=== PATIENT | male | born 1970 | race Caucasian/White ===

== ENCOUNTER 2019-05-15 05:49 | Inpatient (IN) | payer BC ==
[2019-05-15] MEDS ORDERED: Diltiazem 50 MG/10 ML SDV IVPUSH ONE (07:12)
[2019-05-15] MEDS ORDERED: Diltiazem 125 MG in Sodium Chloride 0.9% 100 ML IV SCH (07:15)
--- NOTE | 2019-05-15 07:22 | CR ---
Chest: Two views of the chest were obtained. Comparison: No prior chest imaging. Heart size and mediastinum are normal. Lungs are clear. Bony structures are unremarkable. Impression: 1. Nothing acute is seen on two-view chest x-ray. Diagnostic code #1 This report was dictated in [place] Standard Time
--- NOTE | 2019-05-15 08:06 | EDM.PDOC ---
ED HPI GENERAL MEDICAL PROBLEM - General Chief Complaint: Cardiovascular Problem Stated Complaint: IRREGULAR HEARTBEAT Time Seen by Provider: 05/15/19 06:59 Source of Information: Reports: Patient History Limitations: Reports: No Limitations - History of Present Illness INITIAL COMMENTS - FREE TEXT/NARRATIVE: The patient presents with palpitations. He noticed this late last night or early this morning. He has no chest pain or shortness of breath. He has no fever, chills, cough, congestion or runny nose. This has never happened before. His father has a history of A-fib. He said he did eat more then he usually does and had a few drinks. He has no heart issues. Onset: Gradual Duration: Hour(s): Severity: Moderate Improves with: Reports: None Worsens with: Reports: None Associated Symptoms: Denies: Chest Pain, Cough, Fever/Chills, Headaches, Nausea/ Vomiting, Shortness of Breath - Related Data Allergies Allergy/AdvReac Type Severity Reaction Status Date / Time No Known Allergies Allergy Verified 05/15/19 13:54 Home Meds: Home Meds LORazepam [Lorazepam] 0.5 mg PO Q6H PRN 05/15/19 [History] Olmesartan/Hydrochlorothiazide [Olmesartan-Hctz 40-12.5 mg Tab] 1 tab PO DAILY 05/15/19 [History] Past Medical History Cardiovascular History: Reports: Hypertension Gastrointestinal History: Reports: GERD Psychiatric History: Reports: Anxiety, Depression - Past Surgical History Musculoskeletal Surgical History: Reports: Other (See Below) Other Musculoskeletal Surgeries/Procedures:: collar bone surgery Social & Family History - Family History Neurological: Reports: CVA - Tobacco Use Smoking Status *Q: Never Smoker Second Hand Smoke Exposure: No - Caffeine Use Caffeine Use: Reports: Coffee - Recreational Drug Use Recreational Drug Use: No ED ROS GENERAL - Review of Systems Review Of Systems: See Below Constitutional: Reports: No Symptoms HEENT: Reports: No Symptoms Respiratory: Reports: No Symptoms Cardiovascular: Reports: Palpitations. Denies: Chest Pain Endocrine: Reports: No Symptoms GI/Abdominal: Reports: No Symptoms ED EXAM, GENERAL - Physical Exam Exam: See Below Exam Limited By: No Limitations General Appearance: Alert, No Apparent Distress Ears: Normal External Exam Nose: Normal Inspection Head: Atraumatic, Normocephalic Neck: Normal Inspection Respiratory/Chest: No Respiratory Distress, Lungs Clear, Normal Breath Sounds Cardiovascular: No Edema, No Murmur, Tachycardia, Irregularly Irregular GI/Abdominal: Soft, Non-Tender, No Organomegaly, No Mass Extremities: Normal Inspection Neurological: Alert, Oriented, No Motor/Sensory Deficits EKG INTERPRETATION EKG Date: 05/15/19 Time: 17:53 Rhythm: A-Fib Rate (Beats/Min): 142 [place]: Normal QRS: Normal ST-T: Normal QT: Normal Course - Vital Signs Last Recorded V/S: Last Vital Signs Temp 98.2 F 05/15/19 16:00 Pulse 97 05/15/19 12:31 Resp 13 05/15/19 16:01 BP 135/97 H 05/15/19 16:00 Pulse Ox 98 05/15/19 16:00 - Orders/Labs/Meds Orders: Active Orders 24 hr Category Date Time Status EKG 12 Lead [EKG Documentation Completion] [RC] URGENT Care 05/15/19 06:00 Active Diltiazem 125 mg Med 05/15/19 07:15 Active Sodium Chloride 0.9% [Normal Saline] 100 ml IV TITRATE Medication Orders Acetaminophen (Tylenol) 650 mg PO Q4H PRN PRN Reason: Pain (Mild 1-3)/fever Diltiazem HCl (Cardizem) 30 mg PO Q6H [facility] Last Admin: 05/15/19 16:06 Dose: 30 mg Diltiazem HCl 125 mg/ Sodium (Chloride) 125 mls @ 10 mls/hr IV TITRATE [facility]; Protocol Last Titration: 05/15/19 15:00 Dose: 0 mg/hr, 0 mls/hr Titration: 05/15/19 12:05 Dose: 5 mg/hr, 5 mls/hr Titration: 05/15/19 07:43 Dose: 10 mg/hr, 10 mls/hr Admin: 05/15/19 07:36 Dose: 5 mg/hr, 5 mls/hr Lorazepam (Ativan) 0.5 mg PO Q6H PRN PRN Reason: Anxiety Last Admin: 05/15/19 16:20 Dose: 0.5 mg Rivaroxaban ([facility]to) [facility] Labs: Laboratory Tests 05/15/19 05/15/19 05/15/19 Range/Units 05:59 05:59 05:59 WBC 6.41 (4.23-9.07) K/mm3 RBC 5.56 (4.63-6.08) M/mm3 Hgb 16.5 (13.7-17.5) gm/dl Hct 48.0 (40.1-51.0) % MCV 86.3 (79.0-92.2) fl MCH 29.7 (25.7-32.2) pg MCHC 34.4 (32.2-35.5) g/dl RDW Std Deviation 38.8 (35.1-43.9) fL Plt Count 242 (163-337) K/mm3 MPV 9.2 L (9.4-12.3) fl Neut % (Auto) 72.6 H (34.0-67.9) % Lymph % (Auto) 20.4 L (21.8-53.1) % [place] % (Auto) 6.2 (5.3-12.2) % Eos % (Auto) 0.6 L (0.8-7.0) Baso % (Auto) 0.2 (0.1-1.2) % Neut # (Auto) 4.65 (1.78-5.38) K/mm3 Lymph # (Auto) 1.31 L (1.32-3.57) K/mm3 [place] # (Auto) 0.40 (0.30-0.82) K/mm3 Eos # (Auto) 0.04 (0.04-0.54) K/mm3 Baso # (Auto) 0.01 (0.01-0.08) K/mm3 D-Dimer, Quantitative < 0.19 L (0.19-0.50) mg/L Sodium 141 (136-145) mEq/L Potassium 3.8 (3.5-5.1) mEq/L Chloride 105 (98-107) mEq/L Carbon Dioxide 29 (21-32) mEq/L Anion Gap 10.8 (5-15) BUN 16 (7-18) mg/dL Creatinine 1.2 (0.7-1.3) mg/dL Est Cr Clr Drug Dosing 82.30 mL/min Estimated GFR (MDRD) > 60 (>60) mL/min BUN/Creatinine Ratio 13.3 L (14-18) Glucose 132 H (74-106) mg/dL Calcium 10.8 H (8.5-10.1) mg/dL Total Bilirubin 0.3 (0.2-1.0) mg/dL AST 29 (15-37) U/L ALT 50 (16-63) U/L Alkaline Phosphatase 74 (46-116) U/L Troponin I < 0.017 (0.00-0.056) ng/mL Total Protein 8.6 H (6.4-8.2) g/dl Albumin 4.4 (3.4-5.0) g/dl Globulin 4.2 gm/dL Albumin/Globulin Ratio 1.1 (1-2) TSH 3rd Generation (0.358-3.74) uIU/mL 05/15/19 Range/Units 05:59 WBC (4.23-9.07) K/mm3 RBC (4.63-6.08) M/mm3 Hgb (13.7-17.5) gm/dl Hct (40.1-51.0) % MCV (79.0-92.2) fl MCH (25.7-32.2) pg MCHC (32.2-35.5) g/dl RDW Std Deviation (35.1-43.9) fL Plt Count (163-337) K/mm3 MPV (9.4-12.3) fl Neut % (Auto) (34.0-67.9) % Lymph % (Auto) (21.8-53.1) % [place] % (Auto) (5.3-12.2) % Eos % (Auto) (0.8-7.0) Baso % (Auto) (0.1-1.2) % Neut # (Auto) (1.78-5.38) K/mm3 Lymph # (Auto) (1.32-3.57) K/mm3 [place] # (Auto) (0.30-0.82) K/mm3 Eos # (Auto) (0.04-0.54) K/mm3 Baso # (Auto) (0.01-0.08) K/mm3 D-Dimer, Quantitative (0.19-0.50) mg/L Sodium (136-145) mEq/L Potassium (3.5-5.1) mEq/L Chloride (98-107) mEq/L Carbon Dioxide (21-32) mEq/L Anion Gap (5-15) BUN (7-18) mg/dL Creatinine (0.7-1.3) mg/dL Est Cr Clr Drug Dosing mL/min Estimated GFR (MDRD) (>60) mL/min BUN/Creatinine Ratio (14-18) Glucose (74-106) mg/dL Calcium (8.5-10.1) mg/dL Total Bilirubin (0.2-1.0) mg/dL AST (15-37) U/L ALT (16-63) U/L Alkaline Phosphatase (46-116) U/L Troponin I (0.00-0.056) ng/mL Total Protein (6.4-8.2) g/dl Albumin (3.4-5.0) g/dl Globulin gm/dL Albumin/Globulin Ratio (1-2) TSH 3rd Generation 2.825 (0.358-3.74) uIU/mL Meds: Medications Generic Name Dose Route Start Last Admin Trade Name Freq PRN Reason Stop Dose Admin Acetaminophen 650 mg 05/15/19 12:51 Tylenol PO Q4H PRN Pain (Mild 1-3)/fever Diltiazem HCl 30 mg 05/15/19 16:00 05/15/19 16:06 Cardizem PO 30 mg Q6H DARIA Administration Diltiazem HCl 125 mg/ Sodium 125 mls @ 10 mls/hr 05/15/19 07:15 05/15/19 15: 00 Chloride IV 0 mg/hr TITRATE DARIA 0 mls/hr Titration Protocol 10 MG/HR Lorazepam 0.5 mg 05/15/19 12:49 05/15/19 16:20 Ativan PO 0.5 mg Q6H PRN Administration Anxiety Rivaroxaban 20 mg 05/16/19 17:[facility] Medications Generic Name Dose Route Start Last Admin Trade Name Freq PRN Reason Stop Dose Admin Diltiazem HCl 10 mg 05/15/19 07:12 05/15/19 07:19 Cardizem IVPUSH 05/15/19 07:13 10 mg ONETIME ONE Administration Magnesium Sulfate/Dextrose 1 100 mls @ 100 mls/hr 05/15/19 07:45 05/15/19 11: 41 gm/ Premix IV 05/15/19 11:44 Not Given Q1H DARIA Ibutilide Fumarate 1 mg/ 60 mls @ 360 mls/hr 05/15/19 08:45 05/15/19 09:01 Sodium Chloride IV 05/15/19 08:54 360 mls/hr ONETIME ONE Administration Ibutilide Fumarate 1 mg/ 60 mls @ 300 mls/hr 05/15/19 09:55 05/15/19 10:06 Sodium Chloride IV 05/15/19 10:06 300 mls/hr ONETIME ONE Administration Lorazepam 1 mg 05/15/19 11:11 05/15/19 11:22 Ativan IVPUSH 05/15/19 11:12 1 mg ONETIME ONE Administration Rivaroxaban 20 mg 05/15/19 11:26 05/15/19 11:37 Xarelto PO 05/15/19 11:27 20 mg ONETIME ONE Administration - Re-Assessments/Exams Free Text/Narrative Re-Assessment/Exam: 05/15/19 11:29 The patient has new onset A-fib. I ordered an IV NS, EKG, labs, cardizem bolus and drip. His EKG shows atrial fibrillation in the 140s and no sign of ME. His labs look good. His troponin is negative. His TSH is negative. I tried 2 doses of corvert to convert him but it did not work. I feel he needs to be admitted. I called Dr Walker and he agreed to the admission. Departure - Departure Time of Disposition: 13:00 Disposition: Admitted As Inpatient 64 Condition: Fair Clinical Impression: New onset atrial fibrillation, Atrial fibrillation with RVR Sepsis Event Note - Evaluation Sepsis Screening Result: No Definite Risk - Focused Exam Date Exam was Performed: 05/15/19 Time Exam was Performed: 19:41 - My Orders Last 24 Hours: My Active Orders 05/15/19 06:00 EKG 12 Lead [EKG Documentation Completion] [RC] URGENT 05/15/19 07:15 Diltiazem 125 mg Sodium Chloride 0.9% [Normal Saline] 100 ml IV TITRATE - Assessment/Plan Last 24 Hours: My Active Orders 05/15/19 06:00 EKG 12 Lead [EKG Documentation Completion] [RC] URGENT 05/15/19 07:15 Diltiazem 125 mg Sodium Chloride 0.9% [Normal Saline] 100 ml IV TITRATE
[2019-05-15] MEDS ORDERED: Ibutilide 1 MG/10 ML Vial IVPUSH ONE (08:20)
[2019-05-15] MEDS ORDERED: LORazepam 2 MG/ML SDV IVPUSH ONE (11:11)
[2019-05-15] MEDS ORDERED: Rivaroxaban 10 MG Tab PO ONE (11:26)
[2019-05-15] MEDS ORDERED: Acetaminophen 325 MG Tab PO PRN (12:51)
--- NOTE | 2019-05-15 12:59 | PCM.HP.2 ---
H&P History of Present Illness - General Date of Service: 05/15/19 Admit Problem/Dx: Admission Diagnosis/Problem Admission Diagnosis/Problem Atrial fibrillation - History of Present Illness Initial Comments - Free Text/Narative: 49-year-old male who developed palpitations at approximately 1:00 in the morning. Patient denies any chest pain, shortness of breath, fever or chills. He has not had any upper respiratory infections. Father has a history of atrial fibrillation. He states recently he has had increasing stress at work, drinking coffee late in the evening, and over the weekend ate more and on Wednesday had a couple glasses of wine. Patient then checked his heart rate using mazin on his phone and it was very high and not able to be detected. Patient came to the emergency room where he was found to be in A. fib with a rate up to 150. EKG showed atrial fibrillation with a ventricular rate of 142. Patient was also given a bolus of diltiazem 10 mg and started on a diltiazem drip. Attempt at chemical conversion with ibutilide failed. Patient was then admitted to the ICU on a Cardizem drip. Of note he had a negative troponin, TSH of 2.825, negative d-dimer, normal electrolytes and CBC. - Related Data Allergies/Adverse Reactions: Allergies Allergy/AdvReac Type Severity Reaction Status Date / Time No Known Allergies Allergy Verified 05/15/19 13:54 Home Medications: Home Meds Olmesartan/Hydrochlorothiazide [Olmesartan-Hctz 40-12.5 mg Tab] 1 tab PO DAILY 05/15/19 [History] RX: LORazepam [Lorazepam] 0.5 mg PO Q6H PRN 05/15/19 [History] Past Medical History Cardiovascular History: Reports: Hypertension Gastrointestinal History: Reports: GERD Psychiatric History: Reports: Anxiety, Depression - Past Surgical History Cardiovascular Surgical History: Reports: None Musculoskeletal Surgical History: Reports: Other (See Below) Other Musculoskeletal Surgeries/Procedures:: collar bone surgery Social & Family History - Family History Neurological: Reports: CVA - Tobacco Use Smoking Status *Q: Never Smoker Second Hand Smoke Exposure: No - Caffeine Use Caffeine Use: Reports: Coffee - Alcohol Use Days Per Week of Alcohol Use: 1 Number of Drinks Per Day: 2 Total Drinks Per Week: 2 Date of Last Drink: 05/13/19 Time of Last Drink: 17:00 - Recreational Drug Use Recreational Drug Use: No H&P Review of Systems - Review of Systems: Review Of Systems: Comprehensive ROS is negative, except as noted in HPI. Exam - Exam Exam: See Below - Vital Signs Vital Signs: Last Vital Signs Temp 98.5 F 05/15/19 12:00 Pulse 97 05/15/19 12:31 Resp 13 05/15/19 12:31 BP 138/93 H 05/15/19 12:31 Pulse Ox 96 05/15/19 12:31 Weight: 224 lb 8 oz - Exam Quality Assessment: No: Supplemental Oxygen General: Alert, Oriented, 4 HEENT: Conjunctiva Clear, Hearing Intact, Mucosa Moist & [place] Neck: Supple, Trachea Midline, 2 Lungs: Clear to Auscultation, Normal Respiratory Effort Cardiovascular: Irregular Rhythm (Rate between 90 and 110) GI/Abdominal Exam: Normal Bowel Sounds, Soft, Non-Tender, No Organomegaly, No Distention, No Abnormal Bruit, No Mass Extremities: Normal Inspection, Normal Range of Motion, Non-Tender, No Pedal Edema, Normal Capillary Refill Peripheral Pulses: 2+: Posterior Tibial (L), Posterior Tibial (R), Dorsalis Pedis (L), Dorsalis Pedis (R) Skin: Warm, Dry, Intact Neurological: Cranial Nerves Intact Neuro Extensive - Mental Status: Alert, Oriented x3, Normal Mood/Affect, Normal Cognition, Memory Intact Neuro Extensive - Motor, Sensory, Reflexes: CN II-XII Intact Psychiatric: Alert, Normal Affect, Normal Mood - Patient Data Lab Results Last 24 hrs: Laboratory Results - last 24 hr 05/15/19 05/15/19 05/15/19 Range/Units 05:59 05:59 05:59 WBC 6.41 (4.23-9.07) K/mm3 RBC 5.56 (4.63-6.08) M/mm3 Hgb 16.5 (13.7-17.5) gm/dl Hct 48.0 (40.1-51.0) % MCV 86.3 (79.0-92.2) fl MCH 29.7 (25.7-32.2) pg MCHC 34.4 (32.2-35.5) g/dl RDW Std Deviation 38.8 (35.1-43.9) fL Plt Count 242 (163-337) K/mm3 MPV 9.2 L (9.4-12.3) fl Neut % (Auto) 72.6 H (34.0-67.9) % Lymph % (Auto) 20.4 L (21.8-53.1) % [place] % (Auto) 6.2 (5.3-12.2) % Eos % (Auto) 0.6 L (0.8-7.0) Baso % (Auto) 0.2 (0.1-1.2) % Neut # (Auto) 4.65 (1.78-5.38) K/mm3 Lymph # (Auto) 1.31 L (1.32-3.57) K/mm3 [place] # (Auto) 0.40 (0.30-0.82) K/mm3 Eos # (Auto) 0.04 (0.04-0.54) K/mm3 Baso # (Auto) 0.01 (0.01-0.08) K/mm3 D-Dimer, Quantitative < 0.19 L (0.19-0.50) mg/L Sodium 141 (136-145) mEq/L Potassium 3.8 (3.5-5.1) mEq/L Chloride 105 (98-107) mEq/L Carbon Dioxide 29 (21-32) mEq/L Anion Gap 10.8 (5-15) BUN 16 (7-18) mg/dL Creatinine 1.2 (0.7-1.3) mg/dL Est Cr Clr Drug Dosing 82.30 mL/min Estimated GFR (MDRD) > 60 (>60) mL/min BUN/Creatinine Ratio 13.3 L (14-18) Glucose 132 H (74-106) mg/dL Calcium 10.8 H (8.5-10.1) mg/dL Total Bilirubin 0.3 (0.2-1.0) mg/dL AST 29 (15-37) U/L ALT 50 (16-63) U/L Alkaline Phosphatase 74 (46-116) U/L Troponin I < 0.017 (0.00-0.056) ng/mL Total Protein 8.6 H (6.4-8.2) g/dl Albumin 4.4 (3.4-5.0) g/dl Globulin 4.2 gm/dL Albumin/Globulin Ratio 1.1 (1-2) TSH 3rd Generation (0.358-3.74) uIU/mL 05/15/19 Range/Units 05:59 WBC (4.23-9.07) K/mm3 RBC (4.63-6.08) M/mm3 Hgb (13.7-17.5) gm/dl Hct (40.1-51.0) % MCV (79.0-92.2) fl MCH (25.7-32.2) pg MCHC (32.2-35.5) g/dl RDW Std Deviation (35.1-43.9) fL Plt Count (163-337) K/mm3 MPV (9.4-12.3) fl Neut % (Auto) (34.0-67.9) % Lymph % (Auto) (21.8-53.1) % [place] % (Auto) (5.3-12.2) % Eos % (Auto) (0.8-7.0) Baso % (Auto) (0.1-1.2) % Neut # (Auto) (1.78-5.38) K/mm3 Lymph # (Auto) (1.32-3.57) K/mm3 [place] # (Auto) (0.30-0.82) K/mm3 Eos # (Auto) (0.04-0.54) K/mm3 Baso # (Auto) (0.01-0.08) K/mm3 D-Dimer, Quantitative (0.19-0.50) mg/L Sodium (136-145) mEq/L Potassium (3.5-5.1) mEq/L Chloride (98-107) mEq/L Carbon Dioxide (21-32) mEq/L Anion Gap (5-15) BUN (7-18) mg/dL Creatinine (0.7-1.3) mg/dL Est Cr Clr Drug Dosing mL/min Estimated GFR (MDRD) (>60) mL/min BUN/Creatinine Ratio (14-18) Glucose (74-106) mg/dL Calcium (8.5-10.1) mg/dL Total Bilirubin (0.2-1.0) mg/dL AST (15-37) U/L ALT (16-63) U/L Alkaline Phosphatase (46-116) U/L Troponin I (0.00-0.056) ng/mL Total Protein (6.4-8.2) g/dl Albumin (3.4-5.0) g/dl Globulin gm/dL Albumin/Globulin Ratio (1-2) TSH 3rd Generation 2.825 (0.358-3.74) uIU/mL Result Diagrams: 05/15/19 05:59 05/15/19 05:59 Sepsis Event Note - Evaluation Sepsis Screening Result: No Definite Risk - Focused Exam Vital Signs: Vital Signs Temp Pulse Pulse Resp BP BP Pulse Ox 05/15/19 12:31 97 13 138/93 H 96 05/15/19 12:30 76 16 96 05/15/19 12:16 78 16 130/90 95 05/15/19 12:00 98.5 F 83 16 130/83 94 L 05/15/19 11:50 17 121/93 H 93 L 05/15/19 06:03 97 F 55 L 17 145/99 H 97 Date Exam was Performed: 05/15/19 Time Exam was Performed: 15:14 Problem List Initiated/Reviewed/Updated: Yes Orders Last 24hrs: Active Orders 24 hr Category Date Time Status Patient Status [ADT] Routine ADT 05/15/19 11:36 Active EKG 12 Lead [EKG Documentation Completion] [RC] URGENT Care 05/15/19 06:00 Active Oxygen Therapy [RC] PRN Care 05/15/19 12:51 Ordered Up With Assistance [RC] ASDIRECTED Care 05/15/19 12:51 Ordered VTE/DVT Education [RC] PER UNIT ROUTINE Care 05/15/19 12:51 Ordered Vital Signs [RC] Q4H Care 05/15/19 12:51 Ordered Heart Healthy Diet [DIET] Diet 05/15/19 Lunch Active Echo Comp wo Cont [US] Routine Exams 05/15/19 Stop Req Echo Comp wo Cont [US] Stat Exams 05/15/19 11:28 Ordered CBC WITH AUTO DIFF [HEME] AM Lab 05/16/19 05:11 Ordered COMPREHENSIVE METABOLIC PN,CMP [CHEM] AM Lab 05/16/19 05:11 Ordered MAGNESIUM [CHEM] AM Lab 05/16/19 05:11 Ordered TROPONIN I [CHEM] Stat Lab 05/15/19 12:56 Ordered Acetaminophen [Tylenol] Med 05/15/19 12:51 Ordered 650 mg PO Q4H PRN Diltiazem 125 mg Med 05/15/19 07:15 Active Sodium Chloride 0.9% [Normal Saline] 100 ml IV TITRATE LORazepam Med 05/15/19 12:49 Ordered 0.5 mg PO Q6H PRN Rivaroxaban [Xarelto] Med 05/16/19 17:00 Ordered 20 mg PO WITHDINNER Resuscitation Status Routine Resus Stat 05/15/19 12:51 Ordered Medication Orders Acetaminophen (Tylenol) 650 mg PO Q4H PRN PRN Reason: Pain (Mild 1-3)/fever Diltiazem HCl 125 mg/ Sodium (Chloride) 125 mls @ 10 mls/hr IV TITRATE DARIA; Protocol Last Titration: 05/15/19 12:05 Dose: 5 mg/hr, 5 mls/hr Titration: 05/15/19 07:43 Dose: 10 mg/hr, 10 mls/hr Admin: 05/15/19 07:36 Dose: 5 mg/hr, 5 mls/hr Lorazepam (Ativan) 0.5 mg PO Q6H PRN PRN Reason: Anxiety Rivaroxaban (Xarelto) 20 mg PO WITHDINNER DARIA Assessment/Plan Comment:: Assessment * 49-year-old male with history of hypertension presents with A. fib with RVR * Placed on diltiazem drip and admitted to the ICU * Started on Xarelto 20 mg daily * [id number] score of 1 placing him at intermediate risk of 1.3 %/year of stroke * HAS BLED score 0 * Increasing stress at work and slightly increased caffeine intake * Anxiety and depression * Only taking lorazepam Plan * Admit to ICU * Cardizem drip * Xarelto 20 mg daily * Repeat troponin * Dr. Beckman was consulted from the emergency room and he will see the patient in the morning and consider electrical conversion if he does not spontaneously convert overnight. * CBC, CMP, mag in the morning * Consider cardiac stress test when rate controlled * VTE prophylaxis with Xarelto * CODE STATUS: Full code * Anticipated length of stay 1 to 2 days. - Mortality Measure Prognosis:: Good
[2019-05-15] MEDS: Diltiazem IR 30 MG Tab PO SCH ×2 (16:06→21:33)
[2019-05-15] MEDS: LORazepam 0.5 MG Tab PO PRN (16:20)
[2019-05-16] MEDS: Diltiazem IR 30 MG Tab PO SCH (03:43)
[2019-05-16 08:27] VITALS: PULSE 89
[2019-05-16] MEDS ORDERED: Diltiazem 120 MG Cap.CD PO SCH (09:00)
[2019-05-16] MEDS: LORazepam 0.5 MG Tab PO PRN (09:34)
--- NOTE | 2019-05-16 11:43 | PCM.DCSUM1 ---
Discharge Summary - Hospital Course HPI Initial Comments: 49-year-old male who developed palpitations at approximately 1:00 in the morning. Patient denies any chest pain, shortness of breath, fever or chills. He has not had any upper respiratory infections. Father has a history of atrial fibrillation. He states recently he has had increasing stress at work, drinking coffee late in the evening, and over the weekend ate more and on Wednesday had a couple glasses of wine. Patient then checked his heart rate using mazin on his phone and it was very high and not able to be detected. Patient came to the emergency room where he was found to be in A. fib with a rate up to 150. EKG showed atrial fibrillation with a ventricular rate of 142. Patient was also given a bolus of diltiazem 10 mg and started on a diltiazem drip. Attempt at chemical conversion with ibutilide failed. Patient was then admitted to the ICU on a Cardizem drip. Of note he had a negative troponin, TSH of 2.825, negative d-dimer, normal electrolytes and CBC. Diagnosis: Stroke: No - Discharge Data Discharge Date: 05/16/19 Discharge Disposition: Home, Self-Care 01 Condition: Good - Referral to Home Health Primary Care Physician: Elliott Mosquera MD - Patient Summary/Data Hospital Course: She was admitted to the hospital and placed on a Cardizem drip. He converted to sinus rhythm later that day. He was then transitioned to short acting Cardizem and the next morning placed on Cardizem CD 24-hour 120 mg daily. Patient stayed in sinus rhythm. He was discharged home on Cardizem and Xarelto. Echocardiogram completed on May 15, 2019. Summary: 1. Left ventricular ejection fraction, by visual estimation, is 60 to 65%. 2. Normal pattern of LV diastolic filling. 3. Left ventricular internal cavity size is normal. 4. Mitral valve is normal in structure. 5. Trace mitral valve regurgitation. 6. The inferior vena cava is normal. 7. Aortic root and ascending aorta is normal. - Patient Instructions Diet: Heart Healthy Diet Diet, Other: Decrease coffee/caffeine intake Activity: As Tolerated Driving: May Drive Today Showering/Bathing: May Shower Other/Special Instructions: Follow up with Dr. Beckman in 1-2 weeks. - Discharge Plan *PRESCRIPTION DRUG MONITORING PROGRAM REVIEWED*: No *COPY OF PRESCRIPTION DRUG MONITORING REPORT IN PATIENT JENNI: No Prescriptions/Med Rec: Diltiazem [Cardizem CD] 120 mg PO DAILY #30 cap.cd Rivaroxaban [Xarelto] 20 mg PO WITHDINNER #30 tablet Home Medications: Home Meds LORazepam [Lorazepam] 0.5 mg PO Q6H PRN 05/15/19 [History] Diltiazem [Cardizem CD] 120 mg PO DAILY #30 cap.cd 05/16/19 [Rx] Rivaroxaban [Xarelto] 20 mg PO WITHDINNER #30 tablet 05/16/19 [Rx] Oxygen Therapy Mode: Nasal Cannula Patient Handouts: Rivaroxaban oral tablets, Atrial Fibrillation Forms: ED Department Discharge Referrals: Elliott Mosquera MD [Primary Care Provider] - 05/23/19 9:30 am - Discharge Summary/Plan Comment DC Time >30 min.: No Discharge Summary/Plan Comment: Follow-up with primary care provider in a week. - General Info Date of Service: 05/16/19 Admission Dx/Problem (Free Text: Admission Diagnosis/Problem Admission Diagnosis/Problem Atrial fibrillation Subjective Update: Is doing well. No chest pain or palpitations. Functional Status: Reports: Pain Controlled - Review of Systems General: Reports: No Symptoms HEENT: Reports: No Symptoms Pulmonary: Reports: No Symptoms Cardiovascular: Reports: No Symptoms Gastrointestinal: Reports: No Symptoms Musculoskeletal: Reports: No Symptoms - Patient Data Vitals - Most Recent: Last Vital Signs Temp 97.9 F 05/16/19 08:00 Pulse 89 05/16/19 08:26 Resp 16 05/16/19 08:00 BP 120/87 05/16/19 08:26 Pulse Ox 99 05/16/19 08:00 Weight - Most Recent: 224 lb 8 oz I&O - Last 24 hours: Intake & Output 05/15/19 05/16/19 05/16/19 22:59 06:59 14:59 Intake Total 1145 120 Output Total 300 Balance 845 120 Lab Results - Last 24 hrs: Laboratory Results - last 24 hr 05/15/19 05/16/19 05/16/19 Range/Units 13:05 05:21 05:21 WBC 4.96 (4.23-9.07) K/mm3 RBC 5.65 (4.63-6.08) M/mm3 Hgb 16.4 (13.7-17.5) gm/dl Hct 49.9 (40.1-51.0) % MCV 88.3 (79.0-92.2) fl MCH 29.0 (25.7-32.2) pg MCHC 32.9 (32.2-35.5) g/dl RDW Std Deviation 40.4 (35.1-43.9) fL Plt Count 227 (163-337) K/mm3 MPV 9.1 L (9.4-12.3) fl Neut % (Auto) 61.9 (34.0-67.9) % Lymph % (Auto) 28.4 (21.8-53.1) % Desha % (Auto) 7.9 (5.3-12.2) % Eos % (Auto) 1.4 (0.8-7.0) Baso % (Auto) 0.2 (0.1-1.2) % Neut # (Auto) 3.07 (1.78-5.38) K/mm3 Lymph # (Auto) 1.41 (1.32-3.57) K/mm3 Desha # (Auto) 0.39 (0.30-0.82) K/mm3 Eos # (Auto) 0.07 (0.04-0.54) K/mm3 Baso # (Auto) 0.01 (0.01-0.08) K/mm3 Manual Slide Review Not Reportable Sodium 142 (136-145) mEq/L Potassium 3.8 (3.5-5.1) mEq/L Chloride 104 (98-107) mEq/L Carbon Dioxide 29 (21-32) mEq/L Anion Gap 12.8 (5-15) BUN 14 (7-18) mg/dL Creatinine 1.3 (0.7-1.3) mg/dL Est Cr Clr Drug Dosing 75.97 mL/min Estimated GFR (MDRD) 58 (>60) mL/min BUN/Creatinine Ratio 10.8 L (14-18) Glucose 105 (74-106) mg/dL Calcium 9.6 (8.5-10.1) mg/dL Magnesium 2.4 (1.8-2.4) mg/dl Total Bilirubin 0.4 (0.2-1.0) mg/dL AST 26 (15-37) U/L ALT 48 (16-63) U/L Alkaline Phosphatase 58 (46-116) U/L Troponin I < 0.017 (0.00-0.056) ng/mL Total Protein 7.6 (6.4-8.2) g/dl Albumin 3.8 (3.4-5.0) g/dl Globulin 3.8 gm/dL Albumin/Globulin Ratio 1.0 (1-2) Med Orders - Current: Current Medications Acetaminophen (Tylenol) 650 mg PO Q4H PRN PRN Reason: Pain (Mild 1-3)/fever Last Admin: 05/16/19 06:16 Dose: 650 mg Diltiazem HCl (Cardizem Cd) 120 mg PO DAILY [facility] Last Admin: 05/16/19 08:26 Dose: 120 mg Diltiazem HCl 125 mg/ Sodium (Chloride) 125 mls @ 10 mls/hr IV TITRATE DARIA; Protocol Last Titration: 05/15/19 15:00 Dose: 0 mg/hr, 0 mls/hr Lorazepam (Ativan) 0.5 mg PO Q6H PRN PRN Reason: Anxiety Last Admin: 05/16/19 09:34 Dose: 0.5 mg Rivaroxaban (Xarelto) 20 mg PO [facility] Discontinued Medications Diltiazem HCl (Cardizem) 10 mg IVPUSH ONETIME ONE Stop: 05/15/19 07:13 Last Admin: 05/15/19 07:19 Dose: 10 mg Diltiazem HCl (Cardizem) 30 mg PO Q6H [facility] Last Admin: 05/16/19 03:43 Dose: 30 mg Magnesium Sulfate/Dextrose 1 (gm/ Premix) 100 mls @ 100 mls/hr IV Q1H DARIA Stop: 05/15/19 11:44 Last Admin: 05/15/19 11:41 Dose: Not Given Ibutilide Fumarate 1 mg/ (Sodium Chloride) 60 mls @ 360 mls/hr IV ONETIME ONE Stop: 05/15/19 08:54 Last Admin: 05/15/19 09:01 Dose: 360 mls/hr Ibutilide Fumarate 1 mg/ (Sodium Chloride) 60 mls @ 300 mls/hr IV ONETIME ONE Stop: 05/15/19 10:06 Last Admin: 05/15/19 10:06 Dose: 300 mls/hr Lorazepam (Ativan) 1 mg IVPUSH ONETIME ONE Stop: 05/15/19 11:12 Last Admin: 05/15/19 11:22 Dose: 1 mg Rivaroxaban (Xarelto) 20 mg PO ONETIME ONE Stop: 05/15/19 11:27 Last Admin: 05/15/19 11:37 Dose: 20 mg - Exam General: Reports: Alert, Oriented HEENT: Reports: Pupils Equal, Mucous Membr. Moist/[place] Neck: Reports: Supple Lungs: Reports: Clear to Auscultation, Normal Respiratory Effort Cardiovascular: Reports: Regular Rate, Regular Rhythm GI/Abdominal Exam: Normal Bowel Sounds, Soft, No Distention Extremities: Normal Inspection, Normal Range of Motion, No Pedal Edema Skin: Reports: Warm, Dry, Intact Psy/Mental Status: Reports: Alert, Normal Affect, Normal Mood
[2019-05-16 12:51] VITALS: BP 121/80
[2019-05-16] MEDS ORDERED: Rivaroxaban 10 MG Tab PO SCH (17:00)
== END 2019-05-16 13:10 | disposition home or self-care (01) | DRG 201 ==
LOC: JD.ED 05:49 → JD.ICU 11:36
PROVIDERS: ADMIT Family Medicine; ATTEND Family Medicine
DX: I48.91 Unspecified atrial fibrillation (principal); F41.9 Anxiety disorder, unspecified; F32.9 Major depressive disorder, single episode, unspecified; I10 Essential (primary) hypertension; K21.9 Gastro-esophageal reflux disease without esophagitis; Z79.899 Other long term (current) drug therapy
CPT/HCPCS: 36415; 71046; 71046-26; 80053; 83735; 84443; 84484; 85025; 85379; 93005; 93010; 93306; 96365; 96366; 96368; 96375; 96376; 99284; 99285-25; A9270-GY; J1742; J2060; J3475; J3490; J7050